=== PATIENT | female | born 1950 | race Caucasian/White ===

== ENCOUNTER → 2016-12-21 | Outpatient (CLI) | payer OTHER, BC ==
--- NOTE | 2016-12-24 12:45 | MAMMOGRAPHY REPORT ---
BILATERAL DIGITAL SCREENING MAMMOGRAM WITH CAD: 12/21/2016 CLINICAL HISTORY: Routine screening. Patient has no complaints. TECHNIQUE: Current study was also evaluated with a Computer Aided Detection (CAD) system. Bilatera l CC and MLO views were obtained. COMPARISON: Comparison is made to exams dated: 12/19/2015 mammogram - [facility], 1 mammogram, 03/05/2011 mammogram, 12/20/2008 mammogram, 05/03/2008 mammogram, and 04/07/2008 mamm ogram. BREAST COMPOSITION: The tissue of both breasts is heterogeneously dense, which may obscure small ma sses. FINDINGS: There is a nodular 7 mm asymmetry seen within the left medial posterior breast, which elijah ears somewhat similar to the 2009 exam although appears more prominent compared to more recent prior exams including the 2015 and 2014 exams. Recommend spot compression tomosynthesis views, true late ral view, and possibly breast ultrasound for further evaluation. The remainder of both breasts are stable compared to prior exams, without suspicious masses, calcifi cations, or areas of architectural distortion noted. IMPRESSION: ACR BI-RADS CATEGORY 0: INCOMPLETE EVALUATION: NEED ADDITIONAL IMAGING EVALUATION Left medial breast asymmetry, for which additional imaging evaluation is recommended. The patient w ill be called to schedule an appointment. Approximately 10% of breast cancers are not detected with mammography. A negative mammographic repor t should not delay biopsy if a clinically suggestive mass is present. Sylvia Presley M.D. ah/:12/23/2016 12:23:36 Product Assurance Engineer: Kimber QUEEN(Angie)(M), [facility] letter sent: Addl Imaging 0 BI-RADS Code: ACR BI-RADS Category 0: Incomplete Evaluation: Need Additional Imaging Evaluation
== END | disposition home or self-care (01) ==
LOC: C.MAMM 13:17
PROVIDERS: ATTEND Family Medicine
DX: Z12.31 Encounter for screening mammogram for malignant neoplasm of breast (principal); N64.89 Other specified disorders of breast

== ENCOUNTER → 2017-01-08 | Outpatient (CLI) | payer OTHER, BC ==
--- NOTE | 2017-01-11 07:36 | MAMMOGRAPHY REPORT ---
UNILATERAL LEFT DIGITAL DIAGNOSTIC MAMMOGRAM TOMOSYNTHESIS WITH CAD AND TARGETED LEFT ULTRASOUND: CLINICAL HISTORY: 66-year-old woman called back from screening mammography for a left breast medial, posterior asymmetry. She has a history of previous surgical excisional biopsy in the medial left b reast which yielded benign stromal fibrosis. TECHNIQUE: Spot compression left CC and MLO 2-D digital and tomosynthesis images were obtained. Cur rent study was also evaluated with a Computer Aided Detection (CAD) system. COMPARISON: Comparison is made to exams dated: 12/21/2016 mammogram, 12/19/2015 mammogram - [facility], 06/16/2012 mammogram, 03/05/2011 mammogram, and 12/20/2008 mammogram. BREAST COMPOSITION: The tissue of the left breast is heterogeneously dense, which may obscure small masses. FINDINGS: There is persistence of a 5 x 3 mm nodular asymmetry in the medial, posterior left breast on the spot compression CC view (CC tomosynthesis slice 32). A linear scar marker overlies the med ial, middle one third of the breast, 17 mm anterior to the nodular asymmetry. When comparing back t o prior available mammograms, this asymmetry appears somewhat similar to the 06/16/2012 and 12/27/19 10 mammograms, suggesting benignity. There is no associated architectural distortion or clustered m icrocalcification. This nodular asymmetry is not definitely seen on the MLO view. Further evaluati on with ultrasound was performed. Targeted ultrasound was performed in the medial left breast. There is an oval parallel circumscribe d hypoechoic mass versus normal fat lobule in the 9:00 left breast, 8 cm from the nipple, measuring 7.6 x 2.9 mm. However, this is not as conspicuous in the radial plane and likely represents a emilee l fat lobule. There is nodular breast tissue that has the appearance of scar tissue in the 10:00 le ft breast, likely representing the area of prior surgery. No suspicious solid or cystic mass is jazmine ntified. IMPRESSION: ACR-BI-RADS CATEGORY 3: PROBABLY BENIGN, TARGETED ULTRASOUND ACR-BI-RADS CATEGORY 3: MA OBABLY BENIGN There is a persistent 5 x 3 mm nodular asymmetry in the medial, posterior left breast that appears s imilar to the 2011 and 2009 mammograms, suggesting benignity. No definite sonographic correlate is identified. Given the slight increased conspicuity on the current screening mammogram, a short inte rval follow-up diagnostic left mammogram and possible repeat ultrasound is recommended to ensure sta bility in 6 months. These results were recommendations were discussed with the patient at the time of the exam. Approximately 10% of breast cancers are not detected with mammography. A negative mammographic repor t should not delay biopsy if a clinically suggestive mass is present. Tete Connor M.D. ay/:01/08/2017 15:34:56 Manager Of Learning: Mary Brantley RT(R)(M), [facility] letter sent: Follow Up Recommended 3 BI-RADS Code: ACR-BI-RADS Category 3: Probably Benign Ultrasound BI-RADS: ACR-BI-RADS Category 3: P robably Benign
== END | disposition home or self-care (01) ==
LOC: C.MAMM 14:06
PROVIDERS: ATTEND Family Medicine
DX: N64.89 Other specified disorders of breast (principal)

== ENCOUNTER → 2017-01-11 | Outpatient (CLI) | payer OTHER, BC ==
[2017-01-11 13:51] LABS: CHOLESTEROL/HDL RATIO 3.3; THYROID STIMULATING HORMONE 6.38 uIu/ml (0.300-4.500)
== END | disposition home or self-care (01) ==
LOC: C.LABMFLN 11:05
PROVIDERS: ATTEND Family Medicine
DX: E78.5 Hyperlipidemia, unspecified (principal)

== ENCOUNTER → 2017-01-15 | Outpatient (CLI) | payer OTHER, BC | END | disposition home or self-care (01) | LOC: C.MAMM 09:00 | PROVIDERS: ATTEND Family Medicine | DX: M81.0 Age-related osteoporosis without current pathological fracture (principal); Z78.0 Asymptomatic menopausal state ==

== ENCOUNTER → 2017-03-08 | Outpatient (CLI) | payer OTHER, BC ==
[2017-03-08 18:08] LABS: THYROID STIMULATING HORMONE 3.4 uIu/ml (0.300-4.500)
== END | disposition home or self-care (01) ==
LOC: C.LABMFLN 12:48
PROVIDERS: ATTEND Family Medicine
DX: E03.9 Hypothyroidism, unspecified (principal)

== ENCOUNTER → 2017-07-10 | Outpatient (CLI) | payer OTHER, BC ==
--- NOTE | 2017-07-10 14:26 | MAMMOGRAPHY REPORT ---
UNILATERAL LEFT DIGITAL DIAGNOSTIC MAMMOGRAM TOMOSYNTHESIS WITH CAD AND TARGETED LEFT ULTRASOUND: CLINICAL HISTORY: 66-year-old woman presents for follow-up in the left breast for a probably benign 5 x 3 mm nodular asymmetry in the medial, far posterior breast best seen on the CC view. History of p rior surgery in the left breast. TECHNIQUE: Breast tomosynthesis in addition to standard 2D mammography was performed. Current study was also evaluated with a Computer Aided Detection (CAD) system. COMPARISON: Comparison is made to exams dated: 01/08/2017 mammogram, 01/08/2017 ultrasound, 12/21/2016 m ammogram, 12/19/2015 mammogram - [facility], 06/16/2012 mammogram, and 03/05/2011 mammo gram. BREAST COMPOSITION: The tissue of the left breast is heterogeneously dense, which may obscure small masses. FINDINGS: A linear scar marker overlies the upper inner posterior left breast. The previously observ ed 5 x 3 mm nodular asymmetry in the posterior medial left breast, only seen on the CC view appears v flory similar to the 12/21/2016, 06/16/2012 and 12/26/2009 mammograms, suggesting benignity. No new as sociated calcification or architectural distortion. There is another possible partially circumscribe d 5 x 6 mm mass in the slightly lateral middle one third of the left breast on the CC view, thought t o project superiorly on the MLO view. Further evaluation with ultrasound was performed. No other ob vious new mass, asymmetry, focal area of distortion or suspicious calcifications are identified in th e left breast. Targeted ultrasound was performed in the medial and lateral left breast. Throughout the medial left breast in the upper inner and lower inner quadrants, no discrete solid or cystic masses identified. In the 2:00 left breast, 1 cm from the nipple, there is an oval parallel circumscribed anechoic cyst with posterior acoustic enhancement, measuring 5.4 x 2.4 x 6.6 mm. This is thought to correlate with the newly visualized circumscribed mammographic mass and is benign. IMPRESSION: ACR BI-RADS CATEGORY 2: BENIGN, TARGETED ULTRASOUND ACR BI-RADS CATEGORY 2: BENIGN 1. The nodular asymmetry in the posterior, medial left breast appears very similar to prior mammogra ms dating back to 2009 and with that length of stability is considered benign. 2. A newly visualized circumscribed oval 5 x 6 cm mass in the upper outer middle one third of the le ft breast correlates with a benign cyst on ultrasound seen in the 2:00 axis. 3. There is no mammographic or targeted sonographic evidence of malignancy in the left breast. Amol mmend return to annual screening mammography schedule. These results and recommendations were discussed with the patient at the time of the exam. Approximately 10% of breast cancers are not detected with mammography. A negative mammographic report should not delay biopsy if a clinically suggestive mass is present. Tete Connor M.D. ay/:07/10/2017 13:40:56 Over Hauler Helper: Rozina INMAN)(Madalyn), [facility] letter sent: Normal 1/2 BI-RADS Code: ACR BI-RADS Category 2: Benign Ultrasound BI-RADS: ACR BI-RADS Category 2: Benign
== END | disposition home or self-care (01) ==
LOC: C.MAMM 12:50
PROVIDERS: ATTEND Family Medicine
DX: N64.89 Other specified disorders of breast (principal); N63.0 Unspecified lump in unspecified breast

== ENCOUNTER → 2017-12-18 | Outpatient (CLI) | payer OTHER, BC | END | disposition home or self-care (01) | LOC: C.PAPS 13:27 | PROVIDERS: ATTEND Family Medicine | DX: Z12.4 Encounter for screening for malignant neoplasm of cervix (principal) ==

== ENCOUNTER → 2017-12-24 | Outpatient (CLI) | payer OTHER, BC ==
[2017-12-24 13:12] LABS: BASO % 0.4 %; BASO ABS # 0.02 K/uL (0-0.2); EOS % 1.7 %; EOS ABS # 0.09 K/uL (0-0.5); HEMATOCRIT 43.1 % (37-47); HEMOGLOBIN 14.8 g/dL (12.0-16.0); IG# 0.01 K/uL (0.00-0.02); LYMPH % 21.1 %; LYMPH ABS # 1.11 K/uL (1.2-3.4); MEAN CELL VOLUME 93.5 fL (80-100); MEAN CORPUSCULAR HEMOGLOBIN 32.1 pg (25-34); MEAN CORPUSCULAR HGB CONC 34.3 g/dl (32-36); MEAN PLATELET VOLUME 10.8 fL (7.4-10.4); MONO % 8.7 %; MONO ABS # 0.46 K/uL (0.11-0.59); NEUT % 67.9 %; NEUT ABS # 3.58 K/uL (1.4-6.5); PLATELET COUNT 267 K/uL (130-400); RED CELL DISTRIBUTION WIDTH CV 11.7 % (11.5-14.5); RED CELL DISTRIBUTION WIDTH SD 39.6 fL (36.4-46.3); WHITE BLOOD COUNT 5.27 K/uL (4.8-10.8)
[2017-12-24 13:55] LABS: ALBUMIN 4.1 gm/dl (3.4-5.0); ALT/SGPT 32 U/L (12-78); BLOOD UREA NITROGEN 11 mg/dl (7-18); CALCIUM 9.2 mg/dl (8.5-10.1); CARBON DIOXIDE 28 mmol/L (21-32); CREATININE 0.73 mg/dl (0.60-1.20); GLUCOSE 78 mg/dl (70-99); POTASSIUM 4.4 mmol/L (3.5-5.1); SODIUM 137 mmol/L (136-145)
[2017-12-24 14:08] LABS: ALKALINE PHOSPHATASE 57 U/L (45-117); AST/SGOT 23 U/L (15-37); CHOLESTEROL 175 mg/dl (0-200); LDL CHOLESTEROL CALCULATED 106 mg/dl
== END | disposition home or self-care (01) ==
LOC: C.LABMFLN 09:04
PROVIDERS: ATTEND Family Medicine
DX: K21.9 Gastro-esophageal reflux disease without esophagitis (principal); E78.5 Hyperlipidemia, unspecified